=== PATIENT | female | born 1945 ===

== ENCOUNTER 2018-11-01 18:59 | Emergency (ER) | payer MEDICARE, OTHER ==
[~2018-11-01] VITALS: Ht 167.6 cm; Wt 69.8 kg
== END 2018-11-01 22:22 | disposition left against medical advice (07) ==
LOC: ER 18:59
DX: R07.89 Other chest pain (principal)
CPT/HCPCS: 93005; 93010; 99283-25

== ENCOUNTER 2024-02-05 09:28 | Emergency (ER) | payer OTHER, MEDICARE ==
[~2024-02-05] VITALS: Ht 172.7 cm; Wt 90.7 kg
[2024-02-05 11:43] VITALS: BP 115/74
== END 2024-02-05 11:44 | disposition home or self-care (01) ==
LOC: ER 09:28
DX: S82.55XA Nondisplaced fracture of medial malleolus of left tibia, initial encounter for closed fracture (principal); S82.832A Other fracture of upper and lower end of left fibula, initial encounter for closed fracture; H93.299 Other abnormal auditory perceptions, unspecified ear; Z59.89 Other problems related to housing and economic circumstances; V09.9XXA Pedestrian injured in unspecified transport accident, initial encounter
CPT/HCPCS: 73562-LT; 73610; 99283-25

== ENCOUNTER 2024-03-31 02:10 | Emergency (ER) | payer MEDICARE, OTHER ==
[~2024-03-31] VITALS: Ht 167.6 cm; Wt 80.3 kg
[2024-03-31 02:20] VITALS: BP 143/82
[2024-03-31] MEDS ORDERED: Meclizine HCl 25 MG Tab PO ONE (02:40)
[2024-03-31] MEDS ORDERED: MECL25 PO (03:17)
== END 2024-03-31 03:50 | disposition home or self-care (01) ==
LOC: ER 02:10
DX: R42 Dizziness and giddiness (principal)
CPT/HCPCS: 93005; 93010; A9270

== ENCOUNTER 2024-04-01 14:10 | Emergency (ER) | payer MEDICARE, OTHER ==
[~2024-04-01] VITALS: Ht 167.6 cm; Wt 80.3 kg
[~2024-04-01 14:10] MED LIST: MECL25 PO
[2024-04-01 14:15] VITALS: BP 104/82
[2024-04-01 14:47] LABS: BASOPHILS ABSOLUTE AUTO 0.05 K/mm3 (0.00-0.23); BASOPHILS PERCENT AUTO 1 % (0-2); EOSINOPHILS ABSOLUTE AUTO 0.07 K/mm3 (0.00-0.68); EOSINOPHILS PERCENT AUTO 1 % (0-6); Hematocrit 36.8 % (33.0-51.0); Hemoglobin 12.2 g/dL (11.5-16.0); IMMATURE GRAN ABSOLUTE AUTO 0.01 K/mm3 (0.00-0.10); IMMATURE GRAN PERCENT AUTO 0 % (0-1); LYMPHOCYTES ABSOLUTE AUTO 0.99 K/mm3 (0.84-5.20); LYMPHOCYTES PERCENT AUTO 19 % (21-46); MONOCYTES ABSOLUTE AUTO 0.46 K/mm3 (0.16-1.47); MONOCYTES PERCENT AUTO 9 % (4-13); Mean Corpuscular HGB Conc 33.2 g/dL (31.5-36.5); Mean Corpuscular Volume 93 fL (80-100); Mean Platelet Volume 10.1 fL (9.1-12.4); NEUTROPHILS ABSOLUTE AUTO 3.64 K/mm3 (1.96-9.15); NEUTROPHILS PERCENT AUTO 70 % (41-73); Platelet Count 243 K/mm3 (150-400); RDW Coefficient Variation 13.1 % (11.7-14.2); RDW Standard Deviation 45.2 fL (35.1-46.3); Red Blood Cell Count 3.94 M/mm3 (3.80-5.20); White Blood Cell Count 5.22 K/mm3 (4.00-11.30)
[2024-04-01 15:07] LABS: Albumin, Blood 3.3 g/dL (3.4-5.0); Bilirubin, Total 0.4 mg/dL (0.1-1.0); Bun/Creatinine Ratio 21.4 (12.0-20.0); Calcium, Blood 8.8 mg/dL (8.5-10.1); Creatinine, Blood 0.61 mg/dL (0.40-1.00); Globulin, Blood 3.2 g/dL (2.2-4.0); Potassium, Blood 4.2 mmol/L (3.5-5.5); Total Protein, Blood 6.5 g/dL (6.4-8.2)
[2024-04-01 16:11] LABS: pH Blood Venous 7.39 (7.34-7.37)
[2024-04-01 16:12] LABS: Base Excess Venous 3.2 mmol/L; Bicarbonate Venous 26.2 mmol/L (24.0-30.0); PCO2 Venous 46 mmHg (38-42)
== END 2024-04-01 16:30 | disposition home or self-care (01) ==
LOC: ER 14:10
PROVIDERS: Physician Assistant
DX: R42 Dizziness and giddiness (principal); Z79.899 Other long term (current) drug therapy
CPT/HCPCS: 80053; 82375; 82803; 85025; 93005; 93010; 99284-25